=== PATIENT | male | born 1990 | race Two or more races ===

== ENCOUNTER 2017-02-26 19:21 | Emergency (ER) | payer OTHER ==
[~2017-02-26] VITALS: Ht 180.3 cm; Wt 46.7 kg
[2017-02-26] MEDS ORDERED: ACETAMINOPHEN 325 MG TAB PO ONE (19:30)
[2017-02-26] MEDS ORDERED: IBUPROFEN 600 MG TAB PO ONE (19:30)
[2017-02-26 19:49] LABS: Basophils # (auto) 0 uL; Basophils % (auto) 0.3 % (0.0-2.0); CONDITION Y; Eosinophils # (auto) 0 uL; Hematocrit 41.5 % (36.0-46.0); Hemoglobin 14.1 g/dL (12.2-16.2); Lymphocytes # (auto) 1.1 uL; Lymphocytes % (auto) 10.3 % (10.0-50.0); Mean Corpuscular Hemoglobin 30.1 pg (28.0-32.0); Mean Corpuscular Volume 88.5 fL (80.0-100.0); Mean Platelet Volume 7.4 fL (7.4-10.4); Monocytes # (auto) 0.7 uL; Monocytes % (auto) 5.9 % (0.0-12.0); Neutrophils # (auto) 9.3 uL; Neutrophils % (auto) 83.5 % (37.0-80.0); Platelet Count (auto) 203 10^3/uL (140-450); Red Cell Distribution Width 13.7 % (11.6-16.0); White Blood Cell 11.1 10^3/uL (4.4-10.8)
[2017-02-26 20:11] LABS: Albumin 4.2 g/dL (3.4-5.0); BUN/Creatinine Ratio 8.9; Calcium 8.7 mg/dL (8.5-10.1)
[2017-02-26 20:15] LABS: Potassium 3.8 mmol/L (3.5-5.1)
[2017-02-26 20:35] LABS: Total Protein 7.7 g/dL (6.4-8.2)
[2017-02-26 20:53] LABS: Bilirubin, Total 1.8 mg/dL (0.2-1.0)
[2017-02-27] MEDS ORDERED: AMOXICILLIN TRIHYDRATE 250 MG CAP PO ONE
[2017-02-27] MEDS ORDERED: cefTRIAXone 1GM/50ML D5W 50 ML IV ONE ×2 (00:29→00:45)
[2017-02-27 01:46] VITALS: BP 102/60
== END 2017-02-27 01:47 | disposition home or self-care (01) ==
LOC: ER 19:27 → EDSEX 19:27 → ER 02-27 01:47
DX: J02.0 Streptococcal pharyngitis (principal); F17.210 Nicotine dependence, cigarettes, uncomplicated
CPT/HCPCS: 36415; 80053; 85025; 87880; 96365; 99284; J0696; J7030